=== PATIENT | male | born 1985 | race Caucasian/White ===

== ENCOUNTER 2022-10-14 00:32 | Emergency (ER) | payer BC ==
[2022-10-14] MEDS ORDERED: Ketorolac 60 MG/2 ML SDV IM ONE (00:56)
== END 2022-10-14 01:51 | disposition home or self-care (01) ==
LOC: JD.ED 00:32
DX: S22.31XA Fracture of one rib, right side, initial encounter for closed fracture (principal); I10 Essential (primary) hypertension; Z86.16 Personal history of COVID-19; Z79.899 Other long term (current) drug therapy; Z88.2 Allergy status to sulfonamides; W10.9XXA Fall (on) (from) unspecified stairs and steps, initial encounter
CPT/HCPCS: 71111; 96372; 99283; J1885; 99282